=== PATIENT | female | born 1985 | race Two or more races ===

== ENCOUNTER 2020-11-10 13:18 | Inpatient (IN) | payer BC, OTHER ==
[2020-11-10] MEDS ORDERED: ACETAMINOPHEN 1000 MG/100 ML VIAL (NON FORMULARY) IVPB ONE (13:52)
[2020-11-10] MEDS ORDERED: ONDANSETRON 4 MG/2 ML VIAL IVPUSH ONE (13:52)
[2020-11-10] MEDS ORDERED: SODIUM CHLORIDE 1,000 ML IV STA (13:52)
[2020-11-10] MEDS ORDERED: ONDANSETRON 4 MG/2 ML VIAL ONE (14:19)
[2020-11-10] MEDS ORDERED: ACETAMINOPHEN INJECTION 100 ML IVPB ONE (14:19)
[2020-11-10 14:32] LABS: EOS % 0.3 % (0-4.5); HEMATOCRIT 44.3 % (32.4-45.2); HEMOGLOBIN 14.7 GM/dL (10.7-15.3); LYMPH % 13.3 % (8-40); MCH 27.3 pg (25.7-33.7); MCHC 33.1 g/dl (32.0-36.0); MEAN CELL VOLUME 82.5 fl (80-96); MEAN PLT VOLUME 8.7 fl (7.5-11.1); MONO % 7.4 % (3.8-10.2); PLATELET COUNT 190 10^3/uL (134-434); RBC 5.37 M/mm3 (3.60-5.2); RDW 13.8 % (11.6-15.6); WHITE BLOOD COUNT 5.1 K/mm3 (4.0-10.0)
[2020-11-10 14:46] LABS: INR 1.08 (0.83-1.09); PROTHROMBIN TIME (PATIENT) 13.3 SEC (9.7-13.0)
[2020-11-10 14:57] LABS: CHLORIDE 106 mmol/L (98-107); SODIUM 139 mmol/L (136-145)
[2020-11-10 14:59] LABS: CALCIUM 8.9 mg/dL (8.5-10.1)
[2020-11-10 15:00] LABS: ALBUMIN 4.3 g/dl (3.4-5.0); ANION GAP 7 MMOL/L (8-16); BLOOD UREA NITROGEN 13.5 mg/dL (7-18); CO2 26 mmol/L (21-32); GLUCOSE,RANDOM 109 mg/dL (74-106)
[2020-11-10 15:03] LABS: CREATININE 0.8 mg/dL (0.55-1.3); SGOT/AST 77 U/L (15-37); SGPT/ALT 104 U/L (13-61)
[2020-11-10 15:04] LABS: BILIRUBIN,TOTAL 0.7 mg/dL (0.2-1); TOT PROT 7.8 g/dl (6.4-8.2)
[2020-11-10 15:06] LABS: ALK PHOS 101 U/L (45-117)
[2020-11-10] MEDS ORDERED: FAMOTIDINE 20 MG/50 ML IVPB 20 MG/50 ML MG IVPB ONE (15:28)
[2020-11-10 18:06] LABS: PH,URINE 6.5 (5.0-8.0); URINE APPEARANCE CLEAR; URINE BILIRUBIN NEGATIVE (NEGATIVE); URINE COLOR YELLOW; URINE GLUCOSE (UA) NEGATIVE (NEGATIVE); URINE KETONE NEGATIVE (NEGATIVE); URINE LEUK ESTERASE NEGATIVE (NEGATIVE); URINE NITRITE NEGATIVE (NEGATIVE); URINE PROTEIN NEGATIVE (NEGATIVE); URINE UROBILINOGEN 0.2 mg/dL (0.2-1.0)
[2020-11-10 18:08] LABS: HCG,QUALITATIVE URINE Negative
[2020-11-10] MEDS ORDERED: ENOXAPARIN NA (PORCINE) 100 MG/1 ML DISP.SYRIN SQ ONE ×2 (21:18→21:24)
[2020-11-10] MEDS ORDERED: ENOXAPARIN NA (PORCINE) 60 MG/0.6 ML DISP.SYRIN SQ ONE (21:24)
[2020-11-10] MEDS ORDERED: ACETAMINOPHEN 325 MG TABLET (FP) ONE (22:19)
[2020-11-10] MEDS ORDERED: ACETAMINOPHEN 325 MG TABLET (FP) PO ONE (22:24)
[2020-11-11] MEDS ORDERED: ACETAMINOPHEN 325 MG TABLET (FP) PO PRN ×2 (00:17→14:59)
[2020-11-11] MEDS ORDERED: CEFEPIME HCL/D5W 2 GM/50 ML BAG IVPB ONE (00:30)
[2020-11-11] MEDS ORDERED: CEFEPIME 2 GM/100 ML BAG IVPB ONE (00:36)
[2020-11-11] MEDS ORDERED: ONDANSETRON 4 MG/2 ML VIAL ONE (00:36)
[2020-11-11] MEDS: SODIUM CHLORIDE 1,000 ML IV SCH ×2 (01:01→15:32)
[2020-11-11] MEDS: ONDANSETRON 4 MG/2 ML VIAL IVPUSH SCH ×2 (01:01→14:40)
[2020-11-11 01:54] LABS: CHOLESTEROL 136 mg/dL (50-200); TRIGLYCERIDES 106 mg/dL (0-150)
[2020-11-11 01:58] LABS: HDL CHOLESTEROL 30 mg/dL (40-60); LDL CHOLESTEROL (ONLY SJRH) 82 mg/dL (5-100)
[2020-11-11] MEDS ORDERED: ACETAMINOPHEN 325 MG TABLET (FP) ONE (03:52)
[2020-11-11 07:15] LABS: BASO % 0.8 % (0-2.0); EOS % 0.5 % (0-4.5); HEMATOCRIT 38.4 % (32.4-45.2); HEMOGLOBIN 12.7 GM/dL (10.7-15.3); MCH 27.4 pg (25.7-33.7); MCHC 33.2 g/dl (32.0-36.0); MEAN CELL VOLUME 82.5 fl (80-96); MEAN PLT VOLUME 8.4 fl (7.5-11.1); MONO % 6.1 % (3.8-10.2); NEUT % 67.6 % (42.8-82.8); PLATELET COUNT 163 10^3/uL (134-434); RBC 4.65 M/mm3 (3.60-5.2); RDW 13.8 % (11.6-15.6); WHITE BLOOD COUNT 3.2 K/mm3 (4.0-10.0)
[2020-11-11 07:31] LABS: CALCIUM 7.7 mg/dL (8.5-10.1)
[2020-11-11 07:32] LABS: MAGNESIUM 2.1 mg/dL (1.8-2.4)
[2020-11-11 07:35] LABS: BILIRUBIN,TOTAL 0.7 mg/dL (0.2-1); CREATININE 0.7 mg/dL (0.55-1.3); TOT PROT 6.3 g/dl (6.4-8.2)
[2020-11-11 07:56] LABS: ALBUMIN 3.3 g/dl (3.4-5.0)
[2020-11-11] MEDS ORDERED: ONDANSETRON 4 MG/2 ML VIAL IVPUSH PRN (15:00)
[2020-11-11] MEDS ORDERED: DEXTROSE 5%-WATER - 50 ML IVPB ONE (15:01)
[2020-11-11] MEDS ORDERED: cefTRIAXone SODIUM 1 GM VIAL ONE (15:01)
[2020-11-11] MEDS: PANTOPRAZOLE SODIUM 40 MG VIAL IVPUSH SCH (15:33)
[2020-11-11] MEDS: CEFTRIAXONE 1 GM in DEXTROSE 5%-WATER - 50 ML IVPB SCH (15:43)
[2020-11-11 16:19] VITALS: BMI 40.4
[2020-11-12 07:59] LABS: BASO % 0.4 % (0-2.0); EOS % 3.9 % (0-4.5); HEMATOCRIT 38.6 % (32.4-45.2); HEMOGLOBIN 12.4 GM/dL (10.7-15.3); LYMPH % 33.7 % (8-40); MCH 26.9 pg (25.7-33.7); MCHC 32.1 g/dl (32.0-36.0); MEAN CELL VOLUME 83.8 fl (80-96); MEAN PLT VOLUME 9.3 fl (7.5-11.1); MONO % 6.3 % (3.8-10.2); NEUT % 55.7 % (42.8-82.8); PLATELET COUNT 153 10^3/uL (134-434); RDW 13.5 % (11.6-15.6); WHITE BLOOD COUNT 3.4 K/mm3 (4.0-10.0)
[2020-11-12 08:23] LABS: ALBUMIN 3.3 g/dl (3.4-5.0); BLOOD UREA NITROGEN 7.5 mg/dL (7-18)
[2020-11-12 08:26] LABS: CREATININE 0.6 mg/dL (0.55-1.3)
[2020-11-12 08:28] LABS: BILIRUBIN,TOTAL 0.8 mg/dL (0.2-1); TOT PROT 6.2 g/dl (6.4-8.2)
[2020-11-12] MEDS ORDERED: cefTRIAXone SODIUM 1 GM VIAL ONE (08:39)
[2020-11-12] MEDS ORDERED: DEXTROSE 5%-WATER - 50 ML IVPB ONE (08:39)
[2020-11-12] MEDS: SODIUM CHLORIDE 1,000 ML IV SCH (09:54)
[2020-11-12] MEDS ORDERED: ENOXAPARIN NA (PORCINE) 40 MG/0.4 ML DISP.SYRIN SQ SCH (10:00)
[2020-11-12] MEDS: CEFTRIAXONE 1 GM in DEXTROSE 5%-WATER - 50 ML IVPB SCH (10:18)
[2020-11-12] MEDS: PANTOPRAZOLE SODIUM 40 MG VIAL IVPUSH SCH (10:18)
[2020-11-12] MEDS ORDERED: PT OWN MED DRAWER 7, Y5N ONE (12:46)
[2020-11-12 14:08] LABS: HEP B CORE AB, TOT Negative (Negative)
[2020-11-12 14:40] VITALS: BP 126/72; PULSE 88; TEMP 98.4
== END 2020-11-12 18:02 | disposition home or self-care (01) | DRG 866 ==
LOC: JER 13:18 → JERBED 21:40 → OBSVTOIN 11-11 00:17 → J8W 11-11 14:19
PROVIDERS: ADMIT Hospitalist; ATTEND Internal Medicine
DX: B27.00 Gammaherpesviral mononucleosis without complication (principal); Z68.41 Body mass index [BMI] 40.0-44.9, adult; R07.89 Other chest pain; R50.9 Fever, unspecified; R00.0 Tachycardia, unspecified; K76.89 Other specified diseases of liver; R05 Cough; R16.2 Hepatomegaly with splenomegaly, not elsewhere classified; E66.9 Obesity, unspecified
CPT/HCPCS: 36415; 71045-TC-FY; 71046-TC-FY; 71275-TC; 74176-TC; 80053; 80061; 81003; 82550; 82728; 83615; 83721; 83735; 84100; 84443; 84484; 84703; 85025; 85379; 85610; 85651; 86140; 86308; 86664; 86704; 86706; 86707; 86708; 86709; 86769; 87040; 87077; 87086; 87340; 87804; 87807; 87880; 87899; 93005; 93010; 93970-TC; 99285-25; C9803; G0378; J0131; Q9967; U0003; U0005